=== PATIENT | female | born 1955 | race African-American/Black ===

== ENCOUNTER 2024-01-29 12:44 | Emergency (ER) | payer MEDICAID ==
[~2024-01-29] VITALS: Ht 175.3 cm; Wt 74.0 kg
[2024-01-29 13:06] VITALS: O2SAT 99
[2024-01-29] MEDS: KETOROLAC 30MG/ML VIAL IM ONE (15:41)
[2024-01-29] MEDS ORDERED: NAPR-1176 MT (16:09)
[2024-01-29 17:05] VITALS: BP 96/61; PULSE 67; RESP 17; TEMP 36.66960; O2SAT 100
== END 2024-01-29 17:04 | disposition home or self-care (01) ==
LOC: ER 12:44
DX: M25.561 Pain in right knee (principal); I10 Essential (primary) hypertension
CPT/HCPCS: 73562; 96372; 99283; J1885; Z7610 ×2